=== PATIENT | female | born 1940 | race Caucasian/White ===

== ENCOUNTER 2017-04-03 18:52 | Emergency (ER) | payer MEDICARE ==
[~2017-04-03] VITALS: Ht 162.6 cm; Wt 59.0 kg
[2017-04-03] MEDS ORDERED: NORCO 5-325 TA1 EACH PO (22:14)
[2017-04-03] MEDS ORDERED: WHEELCHAIR1 EACH MISC (22:17)
--- NOTE | 2017-04-05 00:36 | EKG ---
[facility] [address] [facility] [address] [place] [address] Signed Normal sinus rhythm Normal ECG No previous ECGs available Confirmed by JAKE WILLS MD ([id number]) on 04/05/2017 12:36:42 AM Electronically Signed By: JAKE WILLS MD 04/05/17 0036 PATIENT NAME: POLI GARCIA Electrocardiogram DATE OF : 38 PHYSICIAN: JAKE WILLS MD REPORT #: [id number] REPORT IS CONFIDENTIAL AND NOT TO BE RELEASED WITHOUT AUTHORIZATION
== END 2017-04-03 22:25 | disposition home or self-care (01) ==
LOC: ED 18:52
PROC: 0T9B70Z Drainage of Bladder with Drainage Device, Via Natural or Artificial Opening (ICD-10-PCS; principal; 2017-04-03)
DX: S70.01XA Contusion of right hip, initial encounter (principal); Z91.81 History of falling; Z79.899 Other long term (current) drug therapy; Z87.891 Personal history of nicotine dependence; W06.XXXA Fall from bed, initial encounter; R29.6 Repeated falls; R19.7 Diarrhea, unspecified; R42 Dizziness and giddiness; G47.62 Sleep related leg cramps; R47.81 Slurred speech; M17.11 Unilateral primary osteoarthritis, right knee
CPT/HCPCS: 51701; 73502; 73560; 80053; 81001; 84484; 85025; 85610; 85730; 87077; 87088; 87184; 87186; 93005; 93010; 96374; 96375; 99284; J1170; J2405

== ENCOUNTER 2017-04-06 19:25 | Inpatient (IN) | payer MEDICARE ==
[~2017-04-06] VITALS: Ht 162.6 cm; Wt 61.8 kg
[~2017-04-06 19:25] MED LIST: NORCO 5-325 TA1 EACH PO; WHEELCHAIR1 EACH MISC
[2017-04-11] MEDS ORDERED: ASPIRIN325 MG PO (11:39)
== END 2017-04-11 12:15 | disposition home or self-care (01) | DRG 66 ==
LOC: ED 19:25 → MS 22:46
PROVIDERS: ADMIT Internal Medicine
DX: I63.9 Cerebral infarction, unspecified (principal); R29.810 Facial weakness; G83.21 Monoplegia of upper limb affecting right dominant side; Z87.891 Personal history of nicotine dependence
CPT/HCPCS: 70450; 73110; 92610; 97110; 97162; 97166; 97530; J7030